=== PATIENT | male | born 1940 | race Caucasian/White ===

== ENCOUNTER → 2020-11-21 | Outpatient (CLI) | payer SELFPAY ==
[~2020-11-21] MED LIST: LIDOCAINE-MPF 1%, 5ML ONE
[2020-11-21 10:58] LABS: CELLS COUNTED 6
== END | disposition home or self-care (01) ==
LOC: RAD 07:16
PROVIDERS: ATTEND Orthopaedic Surgery
DX: M16.11 Unilateral primary osteoarthritis, right hip (principal)
CPT/HCPCS: 20610; 77002; 87070; 87075; 87102; 87116; 87205; 87206; 89051; 89060